=== PATIENT | female | born 1945 | race Caucasian/White ===

== ENCOUNTER 2017-11-07 18:54 | Inpatient (IN) | payer MEDICARE ==
[~2017-11-07] VITALS: Ht 162.6 cm; Wt 59.8 kg
[2017-11-07 20:24] LABS: BASOPHILS # (AUTO) 0.04 x10^3/uL (0-0.1); BASOPHILS % (AUTO) 1 % (0-1); EOSINOPHILS # (AUTO) 0.13 x10^3/uL (0-0.4); EOSINOPHILS % (AUTO) 2 % (1-7); LYMPHOCYTES # (AUTO) 2.12 x10^3/uL (1-3.4); LYMPHOCYTES % (AUTO) 35 % (22-44); MD NO; MEAN CORPUSCULAR HGB CONC 33.3 g/dL (32.4-35.8); MEAN PLATELET VOLUME 7.6 fL (7.4-10.4); MONOCYTES # (AUTO) 0.62 x10^3/uL (0.2-0.8); MONOCYTES % (AUTO) 10 % (2-9); NEUTROPHILS % (AUTO) 52 % (42-75); PLATELET COUNT 379 x10^3/uL (130-400); RED BLOOD COUNT 3.26 x10^6/uL (3.82-5.3)
[2017-11-07 20:33] LABS: ALANINE AMINOTRANSFERASE 15 U/L (12-78); ALBUMIN 2.8 g/dL (3.4-5.0); ANION GAP 9 mmol/L (5-15); CALCIUM 8.9 mg/dL (8.5-10.1); CHLORIDE 106 mmol/L (98-107); CREATININE 0.42 mg/dL (0.55-1.02)
[2017-11-07 20:35] LABS: ALKALINE PHOSPHATASE 63 U/L (45-117); BILIRUBIN,TOTAL 0.4 mg/dL (0.2-1.0); TOTAL PROTEIN 5.7 g/dL (6.4-8.2)
[2017-11-07] MEDS ORDERED: BUPR-86 PO (21:06)
[2017-11-07] MEDS ORDERED: ALPHA LIPOIC ACID PO (21:06)
[2017-11-07] MEDS ORDERED: MAGNESIUM CITRATE PO (21:06)
[2017-11-07] MEDS ORDERED: GABA300C10 PO (21:06)
[2017-11-07] MEDS ORDERED: VITAMIN D3 PO (21:06)
[2017-11-07] MEDS ORDERED: LISI-167 PO (21:06)
[2017-11-07] MEDS ORDERED: CYAN2000 PO (21:06)
[2017-11-07] MEDS ORDERED: COLACE PO (21:06)
[2017-11-07] MEDS ORDERED: POTA20TA89 PO (21:06)
[2017-11-07] MEDS ORDERED: PROBIOTIC PO (21:06)
[2017-11-07] MEDS ORDERED: RIVA20TA PO (21:06)
[2017-11-07] MEDS ORDERED: VERA120T74 PO (21:06)
[2017-11-07] MEDS ORDERED: OXYC30TA66 PO (21:06)
[2017-11-07] MEDS ORDERED: OXYC10TA6 PO (21:06)
[2017-11-07] MEDS ORDERED: MORPHINE SULFATE 4 MG/ML, 1ML IVPush PRN (22:00)
[2017-11-07] MEDS ORDERED: MORPHINE SULFATE 4 MG/ML, 1ML ONE (22:11)
[2017-11-07] MEDS ORDERED: ONDANSETRON ODT 4 MG ONE (22:11)
[2017-11-07] MEDS ORDERED: ONDANSETRON ODT 4 MG PO ONE (22:30)
[2017-11-07 22:48] VITALS: BP 157/80
[2017-11-07] MEDS ORDERED: PROMETHAZINE 25 MG/ML, 1ML IM PRN (23:00)
[2017-11-07] MEDS ORDERED: morphine SULFATE 10 MG/ML, 1ML IVPush PRN (23:00)
[2017-11-07] MEDS ORDERED: BISACODYL 10 MG SUPP PR PRN (23:00)
[2017-11-07] MEDS ORDERED: OXYcodone IR 5MG TABLET PO PRN (23:00)
[2017-11-07] MEDS ORDERED: hydrALAzine 20 MG/ML, 1ML IVPush PRN (23:00)
[2017-11-07] MEDS ORDERED: DOCUSATE 100 MG CAPSULE PO PRN (23:00)
[2017-11-07] MEDS ORDERED: HEPARIN 5,000 UNITS/ML, 1ML SQ SCH (23:00)
[2017-11-07] MEDS ORDERED: POLYETHYLENE GLYCOL 17 GM PACKET PO PRN (23:00)
[2017-11-07] MEDS ORDERED: ONDANSETRON 2MG/ML, 2ML IVPush PRN (23:00)
[2017-11-07] MEDS ORDERED: ACETAMINOPHEN 325 MG TABLET PO PRN (23:00)
[2017-11-07 23:27] LABS: FREE T4 (FREE THYROXINE) 1.63 ng/dL (0.76-1.46); THYROID STIMULATING HORMONE 1.16 mIU/L (0.358-3.740)
[2017-11-07] MEDS ORDERED: [UNRECOGNIZED DRUG - MIXTURE] MC SCH (23:30)
[2017-11-07] MEDS: SODIUM CHLORIDE 0.9% 1,000 ML IV SCH (23:48)
[2017-11-07] MEDS: OxyconTIN ER 15 MG TAB.ER PO SCH (23:48)
[2017-11-08] MEDS ORDERED: GABAPENTIN 300 MG CAPSULE ONE (00:13)
[2017-11-08] MEDS: RIVAROXABAN 20 MG TABLET PO SCH ×2 (00:15→12:17)
[2017-11-08] MEDS: GABAPENTIN 300 MG CAPSULE PO SCH ×5 (00:16→21:08)
[2017-11-08 01:38] VITALS: BP 164/81
[2017-11-08 03:00] LABS: CULTURE INDICATED? YES; MICROSCOPIC INDICATED
[2017-11-08] MEDS: OXYcodone IR 5MG TABLET PO PRN ×4 (04:04→22:07)
[2017-11-08 04:24] LABS: BASOPHILS # (AUTO) 0.03 x10^3/uL (0-0.1); BASOPHILS % (AUTO) 1 % (0-1); EOSINOPHILS # (AUTO) 0.14 x10^3/uL (0-0.4); EOSINOPHILS % (AUTO) 2 % (1-7); LYMPHOCYTES # (AUTO) 1.72 x10^3/uL (1-3.4); LYMPHOCYTES % (AUTO) 25 % (22-44); MD NO; MEAN CORPUSCULAR HEMOGLOBIN 32.8 pg (27.0-34.8); MEAN CORPUSCULAR HGB CONC 32.5 g/dL (32.4-35.8); MEAN CORPUSCULAR VOLUME 101.1 fL (80-100); MEAN PLATELET VOLUME 7.5 fL (7.4-10.4); MONOCYTES % (AUTO) 10 % (2-9); NEUTROPHILS # (AUTO) 4.23 x10^3/uL (1.8-6.8); NEUTROPHILS % (AUTO) 62 % (42-75); PLATELET COUNT 397 x10^3/uL (130-400); RED BLOOD COUNT 3.37 x10^6/uL (3.82-5.3); RED CELL DISTRIBUTION WIDTH 15.6 % (9.6-15.2)
[2017-11-08 04:37] LABS: ALBUMIN 2.8 g/dL (3.4-5.0); ANION GAP 7 mmol/L (5-15); CALCIUM 8.8 mg/dL (8.5-10.1); CHLORIDE 105 mmol/L (98-107)
[2017-11-08 04:42] LABS: ALANINE AMINOTRANSFERASE 16 U/L (12-78); ALKALINE PHOSPHATASE 68 U/L (45-117); BILIRUBIN,TOTAL 0.5 mg/dL (0.2-1.0); CHOL/HDL RATIO 4.1; CHOLESTEROL, TOTAL 176 mg/dL (140-239); CREATININE 0.52 mg/dL (0.55-1.02); HDL CHOL % 24 % (28-40); HDL CHOLESTEROL (DIRECT) 43 mg/dL (40-60); LDL CHOLESTEROL,CALCULATED 115 mg/dL (54-169); LDL/HDL RATIO 2.7 (0.5-3.0); TOTAL PROTEIN 5.9 g/dL (6.4-8.2); TRIGLYCERIDES 90 mg/dL (50-200); VLDL CHOLESTEROL 18 mg/dL (0-25)
[2017-11-08 07:07] VITALS: BP 166/83
[2017-11-08] MEDS ORDERED: TEMPLATE NON-FORMULARY MED. (Bupropion Hcl** (Wellbutrin Xl**) 150 MG) HOMEMEDPO SCH (09:00)
[2017-11-08] MEDS: POTASSIUM CHLORIDE 20 MEQ TAB.ER.PRT PO SCH (09:41)
[2017-11-08] MEDS: VERAPAMIL ER 120MG TABLET.ER PO SCH (09:41)
[2017-11-08] MEDS: OxyconTIN ER 15 MG TAB.ER PO SCH ×2 (09:41→20:02)
[2017-11-08] MEDS: CYANOCOBALAMIN 1,000 MCG TABLET PO SCH (09:41)
[2017-11-08] MEDS: SODIUM CHLORIDE 0.9% 1,000 ML IV SCH ×2 (09:42→20:02)
[2017-11-08 12:45] VITALS: BP 167/85
[2017-11-08] MEDS ORDERED: GADOBUTROL 7.5 MMOL/7.5 ML PFS ONE (14:04)
[2017-11-08 19:38] VITALS: BP 145/79
[2017-11-09 01:51] VITALS: BP 157/84
[2017-11-09] MEDS: OXYcodone IR 5MG TABLET PO PRN ×5 (01:58→22:17)
[2017-11-09 08:09] VITALS: BP 171/90
[2017-11-09] MEDS ORDERED: CALCIUM CARBONATE 500 MG TAB.CHEW PO PRN (08:30)
[2017-11-09] MEDS: GABAPENTIN 300 MG CAPSULE PO SCH ×3 (09:01→22:17)
[2017-11-09] MEDS: OxyconTIN ER 15 MG TAB.ER PO SCH ×2 (09:01→20:34)
[2017-11-09] MEDS: POTASSIUM CHLORIDE 20 MEQ TAB.ER.PRT PO SCH (09:01)
[2017-11-09] MEDS: RIVAROXABAN 20 MG TABLET PO SCH (09:01)
[2017-11-09] MEDS: CYANOCOBALAMIN 1,000 MCG TABLET PO SCH (09:02)
[2017-11-09] MEDS: ONDANSETRON ODT 4 MG PO PRN (09:09)
[2017-11-09] MEDS: VERAPAMIL ER 120MG TABLET.ER PO SCH (09:09)
[2017-11-09 12:42] VITALS: BP 151/97
[2017-11-09] MEDS: BUPROPION SR 150 MG TABLET PO SCH (13:08)
[2017-11-09 18:26] VITALS: BP 163/84
[2017-11-10 00:36] VITALS: BP 158/83
[2017-11-10] MEDS: OXYcodone IR 5MG TABLET PO PRN ×4 (05:56→23:30)
[2017-11-10 06:12] LABS: BASOPHILS # (AUTO) 0.04 x10^3/uL (0-0.1); BASOPHILS % (AUTO) 1 % (0-1); EOSINOPHILS # (AUTO) 0.27 x10^3/uL (0-0.4); EOSINOPHILS % (AUTO) 4 % (1-7); LYMPHOCYTES # (AUTO) 2.42 x10^3/uL (1-3.4); LYMPHOCYTES % (AUTO) 36 % (22-44); MD NO; MEAN CORPUSCULAR HEMOGLOBIN 33.5 pg (27.0-34.8); MEAN CORPUSCULAR HGB CONC 32.9 g/dL (32.4-35.8); MEAN CORPUSCULAR VOLUME 101.7 fL (80-100); MEAN PLATELET VOLUME 7.3 fL (7.4-10.4); MONOCYTES # (AUTO) 0.62 x10^3/uL (0.2-0.8); MONOCYTES % (AUTO) 9 % (2-9); NEUTROPHILS % (AUTO) 50 % (42-75); PLATELET COUNT 381 x10^3/uL (130-400); RED BLOOD COUNT 3.36 x10^6/uL (3.82-5.3); RED CELL DISTRIBUTION WIDTH 15.8 % (9.6-15.2)
[2017-11-10 06:23] LABS: CHLORIDE 104 mmol/L (98-107)
[2017-11-10 06:30] LABS: ALBUMIN 2.7 g/dL (3.4-5.0); ANION GAP 6 mmol/L (5-15); CREATININE 0.47 mg/dL (0.55-1.02)
[2017-11-10 07:25] VITALS: BP 177/78
[2017-11-10] MEDS ORDERED: POTASSIUM CHLORIDE 20 MEQ TAB.ER.PRT PO ONE (10:00)
[2017-11-10] MEDS: VERAPAMIL ER 120MG TABLET.ER PO SCH (10:01)
[2017-11-10] MEDS: CYANOCOBALAMIN 1,000 MCG TABLET PO SCH (10:01)
[2017-11-10] MEDS: BUPROPION SR 150 MG TABLET PO SCH (10:01)
[2017-11-10] MEDS: ONDANSETRON ODT 4 MG PO PRN (10:03)
[2017-11-10] MEDS: GABAPENTIN 300 MG CAPSULE PO SCH ×3 (10:03→19:57)
[2017-11-10] MEDS: RIVAROXABAN 20 MG TABLET PO SCH (10:03)
[2017-11-10] MEDS: POTASSIUM CHLORIDE 20 MEQ TAB.ER.PRT PO SCH (10:03)
[2017-11-10] MEDS: OxyconTIN ER 15 MG TAB.ER PO SCH ×2 (10:08→19:57)
[2017-11-10 13:15] VITALS: BP 161/87
[2017-11-10] MEDS: FOLIC ACID 1 MG TABLET PO SCH (14:51)
[2017-11-10 20:09] VITALS: BP 103/69
[2017-11-11 01:55] VITALS: BP 117/75
[2017-11-11] MEDS: OXYcodone IR 5MG TABLET PO PRN ×2 (05:16→11:22)
[2017-11-11] MEDS: GABAPENTIN 300 MG CAPSULE PO SCH ×2 (05:16→10:29)
[2017-11-11 05:40] LABS: BASOPHILS # (AUTO) 0.05 x10^3/uL (0-0.1); BASOPHILS % (AUTO) 1 % (0-1); EOSINOPHILS # (AUTO) 0.21 x10^3/uL (0-0.4); EOSINOPHILS % (AUTO) 3 % (1-7); LYMPHOCYTES # (AUTO) 2.47 x10^3/uL (1-3.4); LYMPHOCYTES % (AUTO) 39 % (22-44); MD NO; MEAN CORPUSCULAR HGB CONC 33.5 g/dL (32.4-35.8); MEAN CORPUSCULAR VOLUME 101.7 fL (80-100); MEAN PLATELET VOLUME 7.5 fL (7.4-10.4); MONOCYTES # (AUTO) 0.66 x10^3/uL (0.2-0.8); MONOCYTES % (AUTO) 10 % (2-9); NEUTROPHILS # (AUTO) 2.97 x10^3/uL (1.8-6.8); NEUTROPHILS % (AUTO) 47 % (42-75); PLATELET COUNT 392 x10^3/uL (130-400); RED BLOOD COUNT 3.37 x10^6/uL (3.82-5.3); RED CELL DISTRIBUTION WIDTH 15.6 % (9.6-15.2)
[2017-11-11 05:50] LABS: ALBUMIN 2.7 g/dL (3.4-5.0); ANION GAP 5 mmol/L (5-15); CHLORIDE 106 mmol/L (98-107)
[2017-11-11 06:40] VITALS: BP 159/79
[2017-11-11] MEDS: OxyconTIN ER 15 MG TAB.ER PO SCH (08:39)
[2017-11-11] MEDS: FOLIC ACID 1 MG TABLET PO SCH (08:39)
[2017-11-11] MEDS: VERAPAMIL ER 120MG TABLET.ER PO SCH (08:39)
[2017-11-11] MEDS: POTASSIUM CHLORIDE 20 MEQ TAB.ER.PRT PO SCH (08:39)
[2017-11-11] MEDS: CYANOCOBALAMIN 1,000 MCG TABLET PO SCH (08:40)
[2017-11-11] MEDS: RIVAROXABAN 20 MG TABLET PO SCH (08:40)
[2017-11-11] MEDS: BUPROPION SR 150 MG TABLET PO SCH (08:40)
[2017-11-11] MEDS ORDERED: FOLI-17 PO (09:55)
[2017-11-11] MEDS ORDERED: GABA300C10 PO (09:55)
[2017-11-11] MEDS ORDERED: POTA20TA6 PO (09:57)
[2017-11-11 11:26] VITALS: BP 149/80
== END 2017-11-11 13:27 | DRG 73 ==
LOC: ED 21:58 → EDIP 22:32 → 3NW 22:42
PROVIDERS: ADMIT Internal Medicine; ATTEND Internal Medicine
DX: G62.0 Drug-induced polyneuropathy (principal); E43 Unspecified severe protein-calorie malnutrition; D68.69 Other thrombophilia; D64.9 Anemia, unspecified; M21.371 Foot drop, right foot; R62.7 Adult failure to thrive; R53.1 Weakness; Z90.49 Acquired absence of other specified parts of digestive tract; Z85.43 Personal history of malignant neoplasm of ovary; T45.1X5A Adverse effect of antineoplastic and immunosuppressive drugs, initial encounter; E53.8 Deficiency of other specified B group vitamins; I10 Essential (primary) hypertension; M19.90 Unspecified osteoarthritis, unspecified site; M43.16 Spondylolisthesis, lumbar region; M47.816 Spondylosis without myelopathy or radiculopathy, lumbar region; Z79.01 Long term (current) use of anticoagulants; Z86.711 Personal history of pulmonary embolism; Z87.891 Personal history of nicotine dependence; Z90.710 Acquired absence of both cervix and uterus; Z96.643 Presence of artificial hip joint, bilateral; Z88.8 Allergy status to other drugs, medicaments and biological substances; Z91.013 Allergy to seafood
CPT/HCPCS: 36415; 70450; 72131; 72158; 80048; 80053; 80061; 81001; 82040; 82306; 82607; 82746; 83036; 83735; 84439; 84443; 85025; 87086; 96374; 99285; A9585; Q0162; J7030